=== PATIENT | male | born 1990 | race Caucasian/White ===

== ENCOUNTER 2022-04-08 07:45 | Emergency (ER) | payer SELFPAY ==
[~2022-04-08] VITALS: Ht 165.1 cm; Wt 77.0 kg
[2022-04-08 07:51] VITALS: BP 146/82
== END 2022-04-08 09:34 | disposition home or self-care (01) ==
LOC: ER 07:45
DX: Z77.098 Contact with and (suspected) exposure to other hazardous, chiefly nonmedicinal, chemicals (principal)
CPT/HCPCS: 99283